=== PATIENT | male | born 1935 | race Caucasian/White ===

== ENCOUNTER 2016-05-23 12:33 | Outpatient (CLI) | payer MEDICARE, OTHER | END 2016-05-23 12:34 | disposition home or self-care (01) | DX: Z79.01 Long term (current) use of anticoagulants (principal) ==

== ENCOUNTER 2016-06-28 11:25 | Outpatient (CLI) | payer MEDICARE, OTHER | END 2016-06-28 11:26 | disposition home or self-care (01) | DX: Z79.01 Long term (current) use of anticoagulants (principal) ==

== ENCOUNTER 2016-07-07 | Outpatient (CLI) | payer MEDICARE, OTHER | END 2016-07-07 20:54 | disposition EMS.NT ==

== ENCOUNTER 2016-07-08 11:04 | Outpatient (CLI) | payer MEDICARE, OTHER | END 2016-07-08 11:05 | disposition home or self-care (01) | DX: N39.0 Urinary tract infection, site not specified (principal) ==

== ENCOUNTER 2016-07-19 12:30 | Outpatient (CLI) | payer MEDICARE, OTHER | END 2016-07-19 12:31 | disposition home or self-care (01) | DX: Z79.01 Long term (current) use of anticoagulants (principal) ==

== ENCOUNTER 2016-07-29 09:27 | Outpatient (CLI) | payer MEDICARE, OTHER | END 2016-07-29 09:28 | disposition home or self-care (01) | DX: I48.91 Unspecified atrial fibrillation (principal); E78.5 Hyperlipidemia, unspecified; I10 Essential (primary) hypertension; E11.319 Type 2 diabetes mellitus with unspecified diabetic retinopathy without macular edema; E03.9 Hypothyroidism, unspecified; D64.9 Anemia, unspecified ==

== ENCOUNTER 2016-08-21 12:47 | Outpatient (CLI) | payer MEDICARE, OTHER | END 2016-08-21 12:48 | disposition home or self-care (01) | DX: I48.2 Chronic atrial fibrillation (principal); I51.7 Cardiomegaly ==

== ENCOUNTER 2016-08-22 12:47 | Outpatient (CLI) | payer MEDICARE, OTHER | END 2016-08-22 12:48 | disposition home or self-care (01) | DX: Z79.01 Long term (current) use of anticoagulants (principal) ==

== ENCOUNTER 2016-11-27 09:47 | Outpatient (CLI) | payer MEDICARE, OTHER | END 2016-11-27 09:48 | disposition home or self-care (01) | LOC: LAB.F 09:47 | PROVIDERS: ATTEND Family Medicine | DX: Z79.01 Long term (current) use of anticoagulants (principal) | CPT/HCPCS: 85610 ==

== ENCOUNTER 2017-03-24 09:35 | Outpatient (CLI) | payer MEDICARE, OTHER | END 2017-03-24 09:36 | disposition home or self-care (01) | LOC: LAB.F 09:35 | PROVIDERS: ATTEND Family Medicine | DX: Z79.01 Long term (current) use of anticoagulants (principal) | CPT/HCPCS: 85610 ==

== ENCOUNTER 2017-04-29 13:57 | Outpatient (CLI) | payer MEDICARE, OTHER | END 2017-04-29 13:58 | disposition home or self-care (01) | LOC: LAB.F 13:57 | PROVIDERS: ATTEND Family Medicine | DX: Z79.01 Long term (current) use of anticoagulants (principal) | CPT/HCPCS: 85610 ==

== ENCOUNTER 2017-05-02 13:25 | Outpatient (CLI) | payer MEDICARE, OTHER | END 2017-05-02 13:26 | disposition home or self-care (01) | LOC: LAB.F 13:25 | PROVIDERS: ATTEND Family Medicine | DX: Z79.01 Long term (current) use of anticoagulants (principal) | CPT/HCPCS: 85610 ==

== ENCOUNTER 2017-05-16 11:13 | Outpatient (CLI) | payer MEDICARE, OTHER ==
[2017-05-16 18:04] LABS: ALBUMIN 3.4 g/dL (3.2-5.5); ALBUMIN/GLOBULIN RATIO 0.7 (1.0-2.2); ALKALINE PHOSPHATASE 67 IU/L (42-121); ALT ALANINE AMINOTRANSFERASE 16 IU/L (10-60); AST ASPARTATE AMINOTRANSFERASE 29 IU/L (10-42); BILIRUBIN,TOTAL 1.6 mg/dL (0.2-1.0); BUN - BLOOD UREA NITROGEN 19 mg/dL (6-20); CALCIUM 8.7 mg/dL (8.5-10.3); CARBON DIOXIDE - CO2 22 mmol/L (21-32); CHLORIDE 100 mmol/L (101-111); CHOL/HDL RATIO 3.9 (<5.0); CHOLESTEROL 116 mg/dL; CREATININE 1.5 mg/dL (0.6-1.2); GFR - MDRD 45 (>89); GLUCOSE 177 mg/dL (70-100); HDL CHOLESTEROL 30 mg/dL; LDL CHOLESTEROL,CALCULATED 68 mg/dL; LDL/HDL RATIO 2.3 (<3.6); SODIUM 133 mmol/L (135-145); TOTAL PROTEIN 8.1 g/dL (6.7-8.2); VLDL CHOLESTEROL 18 mg/dL
[2017-05-16 18:35] LABS: HB2 TOTAL 12.4 g/dL; HEMOGLOBIN A1C 0.65 g/dL; HEMOGLOBIN A1C % 6.9 % (4.6-6.2)
== END 2017-05-16 11:14 | disposition home or self-care (01) ==
LOC: LAB.F 11:13
PROVIDERS: ATTEND Family Medicine
DX: Z79.01 Long term (current) use of anticoagulants (principal); I48.91 Unspecified atrial fibrillation; E11.319 Type 2 diabetes mellitus with unspecified diabetic retinopathy without macular edema; E03.9 Hypothyroidism, unspecified; I25.810 Atherosclerosis of coronary artery bypass graft(s) without angina pectoris; I12.9 Hypertensive chronic kidney disease with stage 1 through stage 4 chronic kidney disease, or unspecified chronic kidney disease; N18.9 Chronic kidney disease, unspecified; E78.5 Hyperlipidemia, unspecified
CPT/HCPCS: 36415; 80053; 80061; 83036; 84443; 85610

== ENCOUNTER 2017-05-22 10:45 | Outpatient (CLI) | payer MEDICARE, OTHER | END 2017-05-22 10:46 | disposition home or self-care (01) | LOC: LAB.F 10:45 | PROVIDERS: ATTEND Family Medicine | DX: Z79.01 Long term (current) use of anticoagulants (principal) | CPT/HCPCS: 85610 ==

== ENCOUNTER 2017-05-27 17:46 | Outpatient (CLI) | payer MEDICARE, OTHER | END 2017-05-27 17:47 | disposition critical access hospital (66) | LOC: EMS 17:46 | PROVIDERS: ATTEND Surgery | DX: R53.83 Other fatigue (principal); R50.9 Fever, unspecified | CPT/HCPCS: A0425; A0427 ==

== ENCOUNTER 2017-05-27 18:16 | Inpatient (IN) | payer MEDICARE, OTHER ==
[2017-05-27] MEDS ORDERED: SODIUM CHLORIDE 0.9% 1,000 ML IV ONE (18:51)
[2017-05-27] MEDS ORDERED: ACETAMINOPHEN 325 MG TABLET PO STA (18:51)
--- NOTE | 2017-05-27 18:52 | ED Physician Documentation ---
History of Present Illness - Stated complaint Stated Complaint: WEAKNESS, FEVER - Chief complaint Chief Complaint: General - History obtained from History obtained from: Patient, Family - History of Present Illness Timing: Other (82-year-old gentleman with history of atrial fibrillation and pacemaker on warfarin presents with 1 day of fever and chills with runny nose and mild body aches but no associated cough. He does have a gas and neurogenic bladder or prostate issues and he self caths but has not noticed any visual or smell changes in his urine. No sick contacts or recent travel.) Review of Systems Ten Systems: 10 systems reviewed and negative Constitutional: reports: Fever, Chills, Myalgias Nose: reports: Rhinorrhea / runny nose. denies: Congestion Throat: denies: Sore throat Respiratory: denies: Dyspnea, Cough GI: denies: Abdominal Pain PD PAST MEDICAL HISTORY - Past Medical History Past Medical History: Yes Cardiovascular: Hypertension, Coronary artery disease, Peripheral Vascular Disease, Atrial fibrillation Respiratory: Emphysema, Sleep apnea, CPAP use Neuro: Peripheral neuropathy Endocrine/Autoimmune: Type 2 diabetes, HyPOthyroidism : Retention, Chronic bladder infection HEENT: Chronic vision loss Other Past Medical History: Self caths at home - Past Surgical History Past Surgical History: Yes General: Hiatal hernia repair Cardiovascular: CABG, Pacemaker, Other - Present Medications Home Medications: Ambulatory Orders Medication Instructions Recorded Confirmed Aspirin [Maura Chewable Aspirin] 81 mg PO DAILY 03/16/15 05/27/17 Atorvastatin Calcium [Lipitor] 40 mg PO DAILY 03/16/15 05/27/17 Carvedilol 12.5 mg PO DAILY 03/16/15 05/27/17 Cholecalciferol (Vitamin D3) 2,000 unit PO DAILY 03/16/15 05/27/17 [Vitamin D3] Glyburide 5 mg PO DAILY 03/16/15 05/27/17 HYDROcod/ACETAM 5/325 [[place] 5/325] 1 tab PO PRN PRN 03/16/15 05/27/17 Levothyroxine [Synthroid] 50 mg PO DAILY 03/16/15 05/27/17 Lisinopril 2.5 mg PO DAILY 03/16/15 05/27/17 Solifenacin Succinate [Vesicare] 10 mg PO DAILY 03/16/15 05/27/17 Ubidecarenone [Co Q-10] 100 mg PO DAILY 03/16/15 05/27/17 Warfarin [Coumadin] 5 mg PO DAILY 03/16/15 05/27/17 Warfarin [Coumadin] 1.5 tab PO DAILY 05/27/17 05/27/17 - Allergies Allergies/Adverse Reactions: Allergies Allergy/AdvReac Type Severity Reaction Status Date / Time niacin Allergy Unknown Verified 05/27/17 18:27 - Social History Does the pt smoke?: No Smoking Status: Former smoker Does the pt drink ETOH?: Yes Does the pt have substance abuse?: No - Immunizations Immunizations are current?: Yes - POLST Patient has POLST: Yes PD ED PE NORMAL - Vitals Vital signs reviewed: Yes - General General: Alert and oriented X 3, No acute distress - HEENT HEENT: PERRL, EOMI, Ears normal, Moist mucous membranes, Pharynx benign - Neck Neck: Supple, no meningeal sign, No bony TTP - Cardiac Cardiac: RRR, No murmur - Respiratory Respiratory: No respiratory distress, Clear bilaterally - Abdomen Abdomen: Non tender - Derm Derm: No rash - Neuro Neuro: Alert and oriented X 3, 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 Eye Opening: Spontaneous Motor: Obeys Commands Verbal: Oriented GCS Score: 15 - Psych Psych: Normal mood, Normal affect Results - Vitals Vitals: Vital Signs - 24 hr 05/27/17 05/27/17 05/27/17 18:21 19:22 19:51 Temperature 38.1 C H Heart Rate 70 74 70 Respiratory 16 18 18 Rate Blood Pressure 107/55 L 116/74 118/60 O2 Saturation 92 94 94 Oxygen O2 Source Room air - EKG (time done) 79286 Rate: Rate (enter#) (70) Rhythm: Paced (vent) Computer interpretation: Agree with computer - Labs Labs: Laboratory Tests 05/27/17 05/27/17 05/27/17 19:11 19:11 19:11 WBC 15.3 H RBC 2.97 L Hgb 11.5 L Hct 34.9 L MCV 117.7 H MCH 38.7 H MCHC 32.9 RDW 15.9 H Plt Count 112 L MPV 8.2 Neut # 13.6 H Lymph # 0.6 L [place] # 1.0 Eos # 0.0 Baso # 0.1 Absolute Nucleated RBC 0.01 Nucleated RBC % 0.1 Manual Slide Review Indicated Platelet Estimate DECREASED (<130,000) Platelet Morphology NORMAL APPEARANCE RBC Morph Micro Appear 1+ MICROCYTOSIS PT 29.0 H INR 2.7 H Sodium 134 L Potassium 3.8 Chloride 105 Carbon Dioxide 20 L Anion Gap 9.0 BUN 21 H Creatinine 1.3 H Estimated GFR (MDRD) 53 L Glucose 188 H Lactic Acid Calcium 8.5 Total Bilirubin 2.9 H AST 113 H ALT 51 Alkaline Phosphatase 100 Total Protein 7.4 Albumin 3.3 Globulin 4.1 Albumin/Globulin Ratio 0.8 L Lipase 16 L Urine Color Urine Clarity Urine pH Ur Specific [place] Urine Protein Urine Glucose (UA) Urine Ketones Urine Occult Blood Urine Nitrite Urine Bilirubin Urine Urobilinogen Ur Leukocyte Esterase Urine RBC Urine WBC Ur Squamous Epith Cells Urine Bacteria Ur Microscopic Review Urine Culture Comments Influenza A (Rapid) Influenza B (Rapid) Influenza Types A,B Ag 05/27/17 05/27/17 05/27/17 19:11 19:15 19:45 WBC RBC Hgb Hct MCV MCH MCHC RDW Plt Count MPV Neut # Lymph # [place] # Eos # Baso # Absolute Nucleated RBC Nucleated RBC % Manual Slide Review Platelet Estimate Platelet Morphology RBC Morph Micro Appear PT INR Sodium Potassium Chloride Carbon Dioxide Anion Gap BUN Creatinine Estimated GFR (MDRD) Glucose Lactic Acid 1.4 Calcium Total Bilirubin AST ALT Alkaline Phosphatase Total Protein Albumin Globulin Albumin/Globulin Ratio Lipase Urine Color YELLOW Urine Clarity CLEAR Urine pH 5.5 Ur Specific [place] 1.025 Urine Protein NEGATIVE Urine Glucose (UA) NEGATIVE Urine Ketones NEGATIVE Urine Occult Blood MODERATE H Urine Nitrite NEGATIVE Urine Bilirubin NEGATIVE Urine Urobilinogen 1 (NORMAL) Ur Leukocyte Esterase SMALL H Urine RBC 6-10 H Urine WBC 4-5 Ur Squamous Epith Cells RARE Squamous Urine Bacteria Moderate H Ur Microscopic Review INDICATED Urine Culture Comments INDICATED Influenza A (Rapid) Negative Influenza B (Rapid) Negative Influenza Types A,B Ag - - Rads (name of study) 2v chest Radiology: EMP read contemporaneously (NAD) PD MEDICAL DECISION MAKING - ED course ED course: 82-year-old gentleman with atrial fibrillation on warfarin presents with fever in this flu season. However his flu swab is negative. Note made that he self caths and has had UTIs before and this is present now. Prior culture reviewed, noting david quinolone resistance and he was administered Rocephin after blood cultures. He is very weak and cannot really stand up without assistance and his daughter and her are in poor health and he will need to be admitted. - Consults Consults: Consulted (name) (Allen Boothe, Hospitalist, will see and admit the patient , we spoke at 8:25 PM.) Departure - Departure Disposition: 66 [facility] DC/Xfer Clinical Impression: Weakness, Renal insufficiency UTI (urinary tract infection) Qualifiers: Urinary tract infection type: catheter-associated UTI Indwelling urinary catheter type: unspecified Encounter type: initial encounter Qualified Code(s): T83.511A - Infection and inflammatory reaction due to indwelling urethral catheter, initial encounter Sepsis Qualifiers: Sepsis type: sepsis due to unspecified organism Qualified Code(s): A41.9 - Sepsis, unspecified organism Condition: Serious
[2017-05-27 19:21] LABS: BASOPHILS # (AUTO) 0.1 10^3/uL (0.0-0.1); BASOPHILS % (AUTO) 0.4 %; EOSINOPHILS % (AUTO) 0.2 %; HGB - HEMOGLOBIN 11.5 g/dL (14.0-18.0); LYMPHOCYTES # (AUTO) 0.6 10^3/uL (1.5-3.5); LYMPHOCYTES % (AUTO) 3.9 %; MEAN CORPUSCULAR HEMOGLOBIN 38.7 pg (27.0-31.0); MEAN CORPUSCULAR HGB CONC 32.9 g/dL (32.0-36.0); MEAN CORPUSCULAR VOLUME 117.7 fL (80.0-94.0); MEAN PLATELET VOLUME 8.2 fL (7.4-11.4); MONOCYTES % (AUTO) 6.5 %; NEUTROPHILS # (AUTO) 13.6 10^3/uL (1.5-6.6); PLT - PLATELET COUNT 112 10^3/uL (130-450); RED BLOOD COUNT 2.97 10^6/uL (4.70-6.10); RED CELL DISTRIBUTION WIDTH 15.9 % (12.0-15.0); WHITE BLOOD COUNT 15.3 x10^3/uL (4.8-10.8)
[2017-05-27 19:25] LABS: INR 2.7 (0.8-1.2)
[2017-05-27 19:33] LABS: ALBUMIN 3.3 g/dL (3.2-5.5); ALBUMIN/GLOBULIN RATIO 0.8 (1.0-2.2); BILIRUBIN,TOTAL 2.9 mg/dL (0.2-1.0); CALCIUM 8.5 mg/dL (8.5-10.3); CREATININE 1.3 mg/dL (0.6-1.2); TOTAL PROTEIN 7.4 g/dL (6.7-8.2)
[2017-05-27 19:50] LABS: PLATELET ESTIMATE, MANUAL DECREASED (<130,000) (NORMAL); PLATELET MORPHOLOGY NORMAL APPEARANCE (NORMAL)
[2017-05-27 19:58] LABS: BILIRUBIN,URINE NEGATIVE (NEGATIVE); GLUCOSE, URINE (UA) NEGATIVE (NEGATIVE); KETONES,URINE (UA) NEGATIVE (NEGATIVE); LEUKOCYTE ESTERASE, URINE SMALL (NEGATIVE); NITRITE,URINE NEGATIVE (NEGATIVE); OCCULT BLOOD,URINE MODERATE (NEGATIVE); PH,URINE 5.5 PH (5.0-7.5); PROTEIN,URINE NEGATIVE (NEGATIVE); UROBILINOGEN,URINE 1 (NORMAL) E.U./dL (NORMAL)
[2017-05-27 20:04] LABS: CLARITY,URINE CLEAR (CLEAR); SQUAMOUS EPITHELIAL CELL,UR RARE Squamous (<= Few)
[2017-05-27 20:05] LABS: BACTERIA,URINE Moderate /HPF (None Seen)
[2017-05-27] MEDS ORDERED: cefTRIAXone 1 GM in SODIUM CHLORIDE 0.9% MINIBAG 100 ML IV STA (20:10)
--- NOTE | 2017-05-27 20:20 | XRAY Preliminary Report ---
Exam: XR CHEST 2 VIEW X-RAY IMPRESSION: 1. No acute pulmonary process. 2. Mild cardiac enlargement. [facility] SITE ID: [id number]
--- NOTE | 2017-05-27 20:23 | XRAY Report ---
EXAM: CHEST RADIOGRAPHY EXAM DATE: 05/27/2017 08:08 PM. CLINICAL HISTORY: Fever. COMPARISON: 03/16/2015. TECHNIQUE: 2 views. FINDINGS: Lungs/Pleura: No focal opacities evident. No pleural effusion. No pneumothorax. Normal volumes. Mediastinum: Cardiac enlargement. Dual lead cardiac device is present. Atheromatous plaques are noted in the thoracic aorta. Cardiac enlargement noted. Previous sternotomy. Previous aortic valve replace ment. Other: None. IMPRESSION: 1. No acute pulmonary process. 2. Mild cardiac enlargement. [facility] Referring Provider Line: [phone] SITE ID: [id number]
[2017-05-27] MEDS ORDERED: ACETAMINOPHEN 325 MG TABLET PO PRN (20:42)
[2017-05-27] MEDS ORDERED: ONDANSETRON 4 MG/2 ML VIAL IVP PRN (20:42)
[2017-05-27] MEDS ORDERED: SODIUM CHLORIDE FLUSH 0.9% 10 ML SYRINGE IVP PRN (20:42)
[2017-05-27] MEDS ORDERED: HYDROcod/ACETAM 5/325 MG TABLET PO PRN (20:49)
[2017-05-27 21:14] LABS: HB2 TOTAL 12.3 g/dL; HEMOGLOBIN A1C 0.66 g/dL; HEMOGLOBIN A1C % 7.1 % (4.6-6.2)
[2017-05-27] MEDS: SACCHAROMYCES BOULARDII 250 MG CAPSULE PO SCH (22:16)
[2017-05-27] MEDS: INSULIN ASPART 300 UNIT/3 ML PEN SUBQ SCH (22:16)
[2017-05-27] MEDS: NEOMYCIN/BACITRA/POLYMYX OINT PACKET TOP SCH (22:17)
[2017-05-27] MEDS: SODIUM CHLORIDE FLUSH 0.9% 10 ML SYRINGE IVP SCH (22:18)
[2017-05-28] MEDS: SODIUM CHLORIDE FLUSH 0.9% 10 ML SYRINGE IVP SCH ×4 (05:42→20:49)
[2017-05-28 06:51] LABS: BASOPHILS % (AUTO) 0.2 %; EOSINOPHILS % (AUTO) 0.1 %; HGB - HEMOGLOBIN 11.2 g/dL (14.0-18.0); LYMPHOCYTES # (AUTO) 0.9 10^3/uL (1.5-3.5); LYMPHOCYTES % (AUTO) 6.3 %; MEAN CORPUSCULAR HEMOGLOBIN 39.4 pg (27.0-31.0); MEAN CORPUSCULAR HGB CONC 33.3 g/dL (32.0-36.0); MEAN CORPUSCULAR VOLUME 118.4 fL (80.0-94.0); MEAN PLATELET VOLUME 8.6 fL (7.4-11.4); MONOCYTES # (AUTO) 1.1 10^3/uL (0.0-1.0); MONOCYTES % (AUTO) 7.4 %; NEUTROPHILS # (AUTO) 13.1 10^3/uL (1.5-6.6); PLT - PLATELET COUNT 97 10^3/uL (130-450); RED BLOOD COUNT 2.84 10^6/uL (4.70-6.10); RED CELL DISTRIBUTION WIDTH 15.9 % (12.0-15.0); WHITE BLOOD COUNT 15.2 x10^3/uL (4.8-10.8)
[2017-05-28 06:54] LABS: INR 2.2 (0.8-1.2); PT - PROTHROMBIN TIME 24.6 secs (9.9-12.6)
[2017-05-28 06:55] LABS: CALCIUM 8.1 mg/dL (8.5-10.3); CREATININE 1.3 mg/dL (0.6-1.2)
[2017-05-28] MEDS ORDERED: LEVOTHYROXINE 25 MCG TABLET PO SCH (07:30)
[2017-05-28] MEDS: SACCHAROMYCES BOULARDII 250 MG CAPSULE PO SCH ×2 (08:59→17:10)
[2017-05-28] MEDS: ASPIRIN CHEW 81 MG TABLET PO SCH (08:59)
[2017-05-28] MEDS: CHOLECALCIFEROL 1,000 UNIT TABLET PO SCH (08:59)
[2017-05-28] MEDS: ATORVASTATIN 40 MG TABLET PO SCH (08:59)
[2017-05-28] MEDS: TOLTERODINE LA 2 MG CAPSULE PO SCH (08:59)
[2017-05-28] MEDS ORDERED: glyBURIDE 2.5 MG TABLET PO SCH (09:00)
[2017-05-28] MEDS ORDERED: CARVEDILOL 12.5 MG TABLET PO SCH ×3 (09:00→14:17)
[2017-05-28] MEDS ORDERED: SOLIFENACIN SUCCINATE 10 MG PO SCH (09:00)
[2017-05-28] MEDS: INSULIN ASPART 300 UNIT/3 ML PEN SUBQ SCH ×4 (09:01→20:26)
[2017-05-28] MEDS: NEOMYCIN/BACITRA/POLYMYX OINT PACKET TOP SCH ×2 (09:01→20:49)
[2017-05-28] MEDS: POLYETHYLENE GLYCOL 3350 17 GM PACKET PO SCH (09:05)
[2017-05-28] MEDS ORDERED: WARFARIN 2.5 MG TABLET PO SCH (14:00)
--- NOTE | 2017-05-28 15:15 | HISTORY & PHYSICAL EXAMINATION ---
DATE OF SERVICE: 05/27/2017 Physician: Bhavna Boothe MD CHIEF COMPLAINT: Fever and chills. HISTORY OF PRESENT ILLNESS: Patient is a pleasant, 82-year-old, white male with complex medical background, who presented to the [facility] ER complaining of a 1- day history of fever, chills, and generalized weakness. The patient also reported that the day prior he was nauseous and vomited one time. He vomited clear gastric content, there was no blood. Due to the progressive weakness, he was unable to get out of bed or ambulate. Usually he has impaired mobility and uses a scooter; however, during the past day or so ,he had difficulty even doing that. Notably, the patient has extensive cardiac history; however, he reported that most recently his cardiac condition had been stable. He takes Coumadin for atrial fibrillation. He reported no chest pain, no shortness of breath, and no recent angina-like symptoms. Notably he has history of coronary artery bypass graft and history of aortic valve replacement with a bovine valve. This patient's background is most significant for a history of prostate hypertrophy, for which he self catheterizes. In the past, he had urinary tract infections, in particular Klebsiella and E coli UTIs, which were resistant to multiple antibiotics, including penicillin and fluoroquinolone. Patient reports that the last time he took antibiotics for a urinary infection was about a year ago; at that time, he was admitted to the [facility] system. Upon presentation to the ER, the patient was found febrile with temperature of 38.1 Celsius, his heart rate was in the 70s, EKG showed paced rhythm, blood pressure was borderline low, 100/60. White blood cell count was elevated around 15,000. INR was therapeutic at 2.7; notably, the patient takes Coumadin. Creatinine was 1.3. Patient does have underlying chronic renal insufficiency. ER workup included influenza swab which was negative, chest x-rays which did not show infiltrate; and urinalysis which showed moderate occult blood, small leukocyte esterase, some red blood cells and moderate bacteria, indicating likelihood of urinary tract infection. PAST MEDICAL HISTORY 1. Hypothyroidism. 2. Hypertension. 3. Type 2 diabetes. 4. Complications of diabetes including peripheral neuropathy, retinopathy and nephropathy. 5. Chronic kidney disease. Creatinine baseline 1.1 and 1.3/stage 3 kidney disease. 6. Dyslipidemia. 7. Atrial fibrillation/status post pacemaker implant/therapeutically anticoagulated on Coumadin. 8. History of aortic valve replacement in 2004 with a bovine valve/ bioprosthetic. 9. Coronary artery disease, status post coronary artery bypass graft in 2004. 10. Prostatic hypertrophy, self catheterizes. 11. History of urinary tract infections with Klebsiella and E coli, resistant to multiple antibiotics. ALLERGIES: NIACIN. OUTPATIENT MEDICATIONS Reviewed per electronic medical record included: 1. Aspirin. 2. Vitamin D. 3. Lipitor. 4. Glyburide. 5. Coreg. 6. Coenzyme Q. 7. VESIcare. 8. Lisinopril. 9. Levothyroxine. 10. [place]. 11. Coumadin. SOCIAL HISTORY: The patient lives with his daughter and with his son-in-law. He uses an electric scooter for mobility. He reported no recent falls. He does not smoke and does not drink alcohol. FAMILY HISTORY: Positive for diabetes in his grandmother and type 1 diabetes in his brother. CODE STATUS: DO NOT RESUSCITATE. PRIMARY CARE PHYSICIAN: Jeevan Mccormack MD. REVIEW OF SYSTEMS: Please see pertinent positives and pertinent negatives listed above at History of Present Illness; the patient did not report additional complaints on the 12-point review. PHYSICAL EXAMINATION VITAL SIGNS: Please see listed above in History of Present Illness. GENERAL: The patient is a well-developed, elderly male who was not in distress. SKIN: On the right ear, there was a healing surgical scar with some surrounding swelling, inflammatory changes, and a small amount of discharge. There was no rash and no jaundice. Oral mucosa dry. No thrush, no ulcers. CARDIOVASCULAR: S1, S2. Regular. No pathologic murmur. RESPIRATORY: Good air entry throughout without wheezes or crackles, no increased work of breathing. ABDOMEN: Distended, benign, nontender. Small umbilical hernia. Bowel tones present. LYMPHATIC: No significant lymphedema. MUSCULOSKELETAL: Atraumatic. NEUROLOGIC: Patient was alert, oriented, neurologically nonfocal; he answered all my questions appropriately. PSYCHIATRIC: Cooperative, appropriate mood and affect. ER workup reviewed per electronic medical record; pertinent studies are listed at History of Present Illness. ASSESSMENT AND PLAN: The patient is a pleasant, 82-year-old male whose background is significant for history of complicated urinary tract infections; patient self catheterizes due to a prostate problem, and he had urinary infections in the past resistant to multiple antibiotics. Today he is getting admitted with fever, elevated white blood cell count, borderline low blood pressure, and he rules in for the diagnosis of sepsis secondary to urinary tract infection. ACTIVE ISSUES/DIAGNOSES/PLAN 1. Complicated urinary tract infection/sepsis secondary to urinary tract infection. We will continue ceftriaxone based on prior culture and sensitivity reports. We will encourage oral intake; we will ask the patient to drink about 2 liters fluid in the next 12 hours. The patient is elderly, 82 years old, and we will not give IV fluids, as we do not want to overload his circulation as long as he is hemodynamically stable. Regarding self catheterization, the patient requested that we let him continue his own routine. I gave a nursing order that we should check residuals, and if above 400, then we will remind the patient to do self catheterization. 2. Bowel prophylaxis/Florastor. 3. Chronic kidney disease, creatinine is slightly elevated; treating urinary tract infection and encouraging fluid intake will likely improve the situation. Given borderline low blood pressure, I will hold lisinopril. 4. Therapeutic anticoagulation on Coumadin. I will continue small dose Coumadin, the INR being therapeutic. INR goal for this patient would be between 2 and 3. We are anticoagulating for atrial fibrillation, but not for mechanical valve, as the patient has a bovine aortic valve. In any case, given that he is on antibiotics , INR could change, and I asked Pharmacy to adjust Coumadin dose as needed. 5. Regarding atrial fibrillation, we will continue rate control with Coreg. 6. Type 2 diabetes, blood glucose below 200 today. We will allow a diabetic diet, monitor blood glucose on sliding scale, and continue glyburide as long as the patient takes at least 50% of his meals. 7. Regarding longer term issues, as the patient has frequent urinary infections, he likely would benefit from antibiotic suppression and taking nitrofurantoin. 8. Medication reconciliation. I reviewed outpatient medication list. Notably the patient is both on aspirin and Coumadin. For now I continued it; however, it should be considered that with therapeutic Coumadin anticoagulation, patient might not need aspirin. Regarding the outpatient medications, we will continue mostly unchanged, except I will hold lisinopril given borderline low blood pressure in the setting of acute infection. 9. Code status is DO NOT RESUSCITATE. 10. Regarding deep venous thrombosis prophylaxis, it is not needed as the patient is therapeutically anticoagulated. 11. Additional issue is that the patient had recent skin biopsy and small surgical procedure on his right ear. There is a healing scar. We will order wound care for this and some topical antibiotic ointment. 12. Disposition. The patient is getting admitted as an inpatient. The reasonable expectation is that this patient will be discharged home or transferred to another facility within 96 hours. This assessment is based on my best judgment, assessing admission workup and anticipating response to current therapies,however also considering the patient's complicated background. Time spent with the care of this patient is 60 minutes. TD: 05/28/2017 04:16 ERICA
--- NOTE | 2017-05-28 16:27 | PROVIDER PROGRESS NOTE ---
Assessment/Plan - Problem List (1) UTI (urinary tract infection) Qualifiers: Urinary tract infection type: catheter-associated UTI Indwelling urinary catheter type: unspecified Encounter type: subsequent encounter Qualified Code(s): T83.511D - Infection and inflammatory reaction due to indwelling urethral catheter, subsequent encounter; N39.0 - Urinary tract infection, site not specified; N39.0 - Urinary tract infection, site not specified Assessment/Plan: Patient has a history of urinary retention and self caths at home He has had recurrent UTIs in the past He presented to the ER with generalized weakness, was febrile and BP was borderline low The patient was found to have a leukocytosis with WBC of 15K and UA was positive for a UTI Given IVFs and placed on ceftriaxone given previous susceptibilities Patients BP improved this am Patient feels better WBC still elevated No further fevers Urine cx growing ecoli but susceptibilities are still pending Continue ceftriaxone day 2 (2) Diabetes Qualifiers: Diabetes mellitus type: type 2 Diabetes mellitus complication status: with kidney complications Diabetes mellitus complication detail: with chronic kidney disease Diabetes mellitus intermediate insulin use: without intermediate use Chronic kidney disease stage: stage 2 (mild) Qualified Code(s): E11.22 - Type 2 diabetes mellitus with diabetic chronic kidney disease; N18.2 - Chronic kidney disease, stage 2 (mild); N18.2 - Chronic kidney disease, stage 2 (mild) Assessment/Plan: Patient is on metformin and glyburide at home Will hold PO meds Place on SS insulin while hospitalized DM diet Monitor BG ACHS (3) Atrial fibrillation Qualifiers: Atrial fibrillation type: chronic Qualified Code(s): I48.2 - Chronic atrial fibrillation Assessment/Plan: Patient is rate controlled with coreg On coumadin for anticoagulation and INR is 2.2 Stable Continue home meds (4) Hyponatremia Assessment/Plan: Patient appears to have hypovolemic hyponatremia likely secondary to infection and dehydration Given IVFs and will continue IVF Monitor Na (5) Hypothyroidism Qualifiers: Hypothyroidism type: unspecified Qualified Code(s): E03.9 - Hypothyroidism , unspecified Assessment/Plan: Stable Continue synthroid (6) Urinary retention Assessment/Plan: RN will help straight cath while patient is hospitalized - Current Meds Current Meds: Current Medications Generic Name Dose Route Start Last Admin Trade Name Freq PRN Reason Stop Dose Admin Aspirin 81 mg 05/28/17 09:00 05/28/17 08:59 [place] Aspirin PO 81 mg DAILY PATRICIA Administration Atorvastatin Calcium 40 mg 05/28/17 09:00 05/28/17 08:59 Lipitor PO 40 mg DAILY PATRICIA Administration Cholecalciferol 2,000 unit 05/28/17 09:00 05/28/17 08:59 Vitamin D3 PO 2,000 unit DAILY PATRICIA Administration Insulin Aspart 1 - 5 unit 05/27/17 21:00 05/28/17 11:41 Novolog SUBQ Not Given 0800,1200,1700,2100 [facility] Protocol Neomycin/Polymyxin/Bacitracin 1 packet 05/27/17 22:00 05/28/17 09:01 Neosporin Oint Pkt TOP 1 packet BID PATRICIA Administration Polyethylene Glycol 17 gm 05/28/17 09:00 05/28/17 09:05 Miralax PO Not Given DAILY PATRICIA Saccharomyces Boulardii 250 mg 05/27/17 21:00 05/28/17 08:59 Florastor PO 250 mg BIDWM PATRICIA Administration Sodium Chloride 10 ml 05/27/17 22:00 05/28/17 14:54 Normal Saline Flush 0.9% IVP 10 ml Q8HR PATRICIA Administration Tolterodine Tartrate 4 mg 05/28/17 09:00 05/28/17 08:59 Detrol [place] PO 4 mg DAILY PATRICIA Administration - Lab Result Lab results reviewed: Yes Fish Bone Diagrams: 05/28/17 06:10 05/28/17 06:10 - Diagnostic Imaging Results Diagnostic Imaging Results: Final report reviewed - Additional Planning My Orders: My Active Orders 05/28/17 16:00 Warfarin [Coumadin] 5 mg PO ALVAROETHSA@1400 05/29/17 07:00 Levothyroxine [Synthroid] 50 mcg PO QDAC 05/29/17 09:00 Carvedilol [Coreg] 6.25 mg PO DAILY Lisinopril [Zestril] 2.5 mg PO DAILY Plan Discussed with:: Patient Time Spent: 31-60 minutes Subjective - Subjective Patient Reports: Feeling Better, Resting Comfortably, Other (Still feels weak but improved since he came to the ER) Objective Vital Signs: Vital Signs - 24 hr 05/27/17 05/27/17 05/28/17 20:55 21:39 00:52 Temperature 37.3 C 37.1 C 37 C Heart Rate 70 Heart Rate [ 70 74 Brachial] Respiratory 16 16 20 Rate Blood Pressure 99/55 L Blood Pressure 96/46 L 120/57 L [Right Brachial artery] O2 Saturation 95 93 94 05/28/17 05/28/17 08:25 12:36 Temperature 36.7 C 37.4 C Heart Rate Heart Rate [ 69 70 Brachial] Respiratory 19 16 Rate Blood Pressure Blood Pressure 99/77 101/56 L [Right Brachial artery] O2 Saturation 95 96 Oxygen O2 Source Room air I&O (Last 24 Hrs): Intake and Output Totals x24h 05/26/17 05/27/17 05/28/17 23:59 23:59 23:59 Intake Total 370 580 Balance 370 580 General: Alert, Oriented x3, Cooperative, No acute distress HEENT: Atraumatic, PERRLA, EOMI, Other (Mucus membranes are dry) Neck: Supple, No JVD, No thyromegaly, +2 carotid pulse wo bruit, No LAD Lymphatic: no adenopathy Neuro: Alert, Non Focal, CN 2-12 Grossly Intact, Oriented Times 3 Cardiovascular: Normal S1, Normal S2, No murmurs, Other (Irregulary irregular) Respiratory: Chest non-tender, No respiratory distress, Breath sounds nml Abdomen: Normal bowel sounds, Soft, No tenderness, No hepatospenomegaly Extremities: No clubbing, No cyanosis, No edema, Normal pulses Skin: No rashes, No breakdown - Results Results: Laboratory Results WBC 15.2 x10^3/uL (4.8-10.8) H 05/28/17 06:10 RBC 2.84 10^6/uL (4.70-6.10) L 05/28/17 06:10 Hgb 11.2 g/dL (14.0-18.0) L 05/28/17 06:10 Hct 33.6 % (42.0-52.0) L 05/28/17 06:10 MCV 118.4 fL (80.0-94.0) H 05/28/17 06:10 MCH 39.4 pg (27.0-31.0) H 05/28/17 06:10 MCHC 33.3 g/dL (32.0-36.0) 05/28/17 06:10 RDW 15.9 % (12.0-15.0) H 05/28/17 06:10 Plt Count 97 10^3/uL (130-450) L 05/28/17 06:10 MPV 8.6 fL (7.4-11.4) 05/28/17 06:10 Neut # 13.1 10^3/uL (1.5-6.6) H 05/28/17 06:10 Lymph # 0.9 10^3/uL (1.5-3.5) L 05/28/17 06:10 [place] # 1.1 10^3/uL (0.0-1.0) H 05/28/17 06:10 Eos # 0.0 10^3/uL (0.0-0.7) 05/28/17 06:10 Baso # 0.0 10^3/uL (0.0-0.1) 05/28/17 06:10 Absolute Nucleated RBC 0.00 x10^3/uL 05/28/17 06:10 Nucleated RBC % 0.0 /100WBC 05/28/17 06:10 Manual Slide Review Indicated 05/28/17 06:10 Platelet Estimate DECREASED (<130,000) (NORMAL) 05/27/17 19:11 Platelet Morphology NORMAL APPEARANCE (NORMAL) 05/27/17 19:11 RBC Morph Micro Appear 2+ ANISOCYTOSIS (NORMAL) 1+ HYPOCHROMASIA (NORMAL) 1 + MICROCYTOSIS (NORMAL) 05/27/17 19:11 RBC Morph Micro Appear 2+ ANISOCYTOSIS (NORMAL) 1+ HYPOCHROMASIA (NORMAL) 1 + MICROCYTOSIS (NORMAL) 05/27/17 19:11 RBC Morph Micro Appear 1+ ANISOCYTOSIS (NORMAL) 3+ MACROCYTOSIS (NORMAL) 06:10 RBC Morph Micro Appear 1+ ANISOCYTOSIS (NORMAL) 3+ MACROCYTOSIS (NORMAL) 06:10 PT 24.6 secs (9.9-12.6) H 05/28/17 06:10 INR 2.2 (0.8-1.2) H 05/28/17 06:10 Sodium 133 mmol/L (135-145) L 05/28/17 06:10 Potassium 4.2 mmol/L (3.5-5.0) 05/28/17 06:10 Chloride 104 mmol/L (101-111) 05/28/17 06:10 Carbon Dioxide 22 mmol/L (21-32) 05/28/17 06:10 Anion Gap 7.0 (6-13) 05/28/17 06:10 BUN 21 mg/dL (6-20) H 05/28/17 06:10 Creatinine 1.3 mg/dL (0.6-1.2) H 05/28/17 06:10 Estimated GFR (MDRD) 53 (>89) L 05/28/17 06:10 Glucose 158 mg/dL (70-100) H 05/28/17 06:10 POC Whole Bld Glucose 117 mg/dL (70 - 100) H 05/28/17 11:30 Glycated Hemoglobin 7.1 % (4.6-6.2) H 05/27/17 19:11 Estim Average Glucose 157 (70-100) H 05/27/17 19:11 Lactic Acid 1.4 mmol/L (0.5-2.2) 05/27/17 19:11 Calcium 8.1 mg/dL (8.5-10.3) L 05/28/17 06:10 Total Bilirubin 2.9 mg/dL (0.2-1.0) H 05/27/17 19:11 AST 113 IU/L (10-42) H 05/27/17 19:11 ALT 51 IU/L (10-60) 05/27/17 19:11 Alkaline Phosphatase 100 IU/L (42-121) 05/27/17 19:11 Total Protein 7.4 g/dL (6.7-8.2) 05/27/17 19:11 Albumin 3.3 g/dL (3.2-5.5) 05/27/17 19:11 Globulin 4.1 g/dL (2.1-4.2) 05/27/17 19:11 Albumin/Globulin Ratio 0.8 (1.0-2.2) L 05/27/17 19:11 Lipase 16 U/L (22-51) L 05/27/17 19:11 Urine Color YELLOW 05/27/17 19:45 Urine Clarity CLEAR (CLEAR) 05/27/17 19:45 Urine pH 5.5 PH (5.0-7.5) 05/27/17 19:45 Ur Specific [place] 1.025 (1.002-1.030) 05/27/17 19:45 Urine Protein NEGATIVE mg/dL (NEGATIVE) 05/27/17 19:45 Urine Glucose (UA) NEGATIVE mg/dL (NEGATIVE) 05/27/17 19:45 Urine Ketones NEGATIVE mg/dL (NEGATIVE) 05/27/17 19:45 Urine Occult Blood MODERATE (NEGATIVE) H 05/27/17 19:45 Urine Nitrite NEGATIVE (NEGATIVE) 05/27/17 19:45 Urine Bilirubin NEGATIVE (NEGATIVE) 05/27/17 19:45 Urine Urobilinogen 1 (NORMAL) E.U./dL (NORMAL) 05/27/17 19:45 Ur Leukocyte Esterase SMALL (NEGATIVE) H 05/27/17 19:45 Urine RBC 6-10 /HPF (0-5) H 05/27/17 19:45 Urine WBC 4-5 /HPF (0-3) 05/27/17 19:45 Ur Squamous Epith Cells RARE Squamous (<= Few) 05/27/17 19:45 Urine Bacteria Moderate /HPF (None Seen) H 05/27/17 19:45 Ur Microscopic Review INDICATED 05/27/17 19:45 Urine Culture Comments INDICATED 05/27/17 19:45 Influenza A (Rapid) Negative (Negative) 05/27/17 19:15 Influenza B (Rapid) Negative (Negative) 05/27/17 19:15 Influenza Types A,B Ag - 05/27/17 19:15
[2017-05-28] MEDS: WARFARIN 5 MG TABLET PO SCH (17:10)
[2017-05-28] MEDS ORDERED: cefTRIAXone 1 GM in SODIUM CHLORIDE 0.9% MINIBAG 100 ML IV SCH (20:00)
[2017-05-28] MEDS ORDERED: DEXTROSE 50% ABBOJECT 25 GM/50 ML SYRINGE IVP ONE (20:14)
[2017-05-28] MEDS ORDERED: DEXTROSE 50% ABBOJECT 25 GM/50 ML SYRINGE IVP SCH (20:49)
[2017-05-29] MEDS: SODIUM CHLORIDE FLUSH 0.9% 10 ML SYRINGE IVP SCH (04:21)
[2017-05-29] MEDS ORDERED: LEVOTHYROXINE 25 MCG TABLET PO SCH (07:00)
[2017-05-29] MEDS: INSULIN ASPART 300 UNIT/3 ML PEN SUBQ SCH ×2 (07:44→12:29)
[2017-05-29 08:16] LABS: HGB - HEMOGLOBIN 10.8 g/dL (14.0-18.0); MEAN CORPUSCULAR HGB CONC 34.6 g/dL (32.0-36.0); MEAN CORPUSCULAR VOLUME 115.8 fL (80.0-94.0); MEAN PLATELET VOLUME 8.4 fL (7.4-11.4); RED BLOOD COUNT 2.7 10^6/uL (4.70-6.10); RED CELL DISTRIBUTION WIDTH 15.9 % (12.0-15.0)
[2017-05-29 08:21] VITALS: BP 93/74
[2017-05-29 08:28] LABS: ALBUMIN 2.8 g/dL (3.2-5.5); ALBUMIN/GLOBULIN RATIO 0.7 (1.0-2.2); ALKALINE PHOSPHATASE 66 IU/L (42-121); ALT ALANINE AMINOTRANSFERASE 42 IU/L (10-60); AST ASPARTATE AMINOTRANSFERASE 57 IU/L (10-42); BILIRUBIN,TOTAL 1.5 mg/dL (0.2-1.0); BUN - BLOOD UREA NITROGEN 20 mg/dL (6-20); CALCIUM 8.6 mg/dL (8.5-10.3); CARBON DIOXIDE - CO2 24 mmol/L (21-32); CHLORIDE 100 mmol/L (101-111); CREATININE 1.1 mg/dL (0.6-1.2); GFR - MDRD 64 (>89); GLUCOSE 82 mg/dL (70-100); SODIUM 133 mmol/L (135-145); TOTAL PROTEIN 6.9 g/dL (6.7-8.2)
[2017-05-29] MEDS ORDERED: LISINOPRIL 5 MG TABLET PO SCH (09:00)
[2017-05-29] MEDS ORDERED: CARVEDILOL 3.125 MG TABLET PO SCH (09:00)
--- NOTE | 2017-05-29 09:00 | Discharge Plan ---
Discharge Plan Disposition: 01 Home, Self Care Condition: Fair Prescriptions: Sulfamethox/Trimeth 800/160 [Bactrim Ds 800/160] 1 tab PO BID #14 tablet Diet: Diabetic Activity Restrictions: Activity as Tolerated Shower Restrictions: No Driving Restrictions: No Assistance Devices: Walker Weight Bearing: Full Weight Additional Instructions or Follow Up instructions: You presented to our emergency department with weakness and were found to have a urinary tract infection. When you presented to the emergency department your blood pressure was borderline low and you appeared to be septic. With IV fluids and antibiotics you improved. Your urine culture grew E. coli which should be susceptible to an oral antibiotic. We have prescribed you Bactrim which she will take for 7 days to complete a course of antibiotics for urinary tract infection. While you were hospitalized you did have a drop in your blood sugar and I advised that you stop taking glyburide. You should continue using your metformin. Please make sure to drink plenty of fluid and follow-up with your primary care physician in the next week. No Smoking: If you smoke, Please STOP! Call for help. Follow-up with: Adriel Mccormack MD [Primary Care Provider] -
[2017-05-29] MEDS: TOLTERODINE LA 2 MG CAPSULE PO SCH (09:08)
[2017-05-29] MEDS: ASPIRIN CHEW 81 MG TABLET PO SCH (09:09)
[2017-05-29] MEDS: CHOLECALCIFEROL 1,000 UNIT TABLET PO SCH (09:09)
[2017-05-29] MEDS: ATORVASTATIN 40 MG TABLET PO SCH (09:09)
[2017-05-29] MEDS: SACCHAROMYCES BOULARDII 250 MG CAPSULE PO SCH (09:09)
--- NOTE | 2017-05-29 09:09 | DISCHARGE SUMMARY ---
Discharge Summary Admit Date: 05/27/17 Discharge Date: 05/29/17 Discharging Provider: Al Reyes MD Primary Care Provider: Jeevan Mccormack MD Code Status: Do Not Attempt Resuscitation Condition at Discharge: Fair Discharge Disposition: 01 Home, Self Care - DIAGNOSES Admission Diagnoses: 1. Complicated urinary tract infection 2. Sepsis secondary to UTI 3. Bowel prophylaxis 4. Chronic kidney disease 5. Therapeutic and a coagulation on Coumadin 6. Atrial fibrillation 7. Type 2 diabetes 8. DVT prophylaxis Discharge Diagnoses with Status of Each Condition: 1. Urinary tract infection: Improving 2. Diabetes: Stable 3. Atrial fibrillation: Stable 4. Hyponatremia: Improved 5. Hypothyroidism: Stable 6. Urinary retention: Stable - HPI History of Present Illness: Patient is an 82-year-old gentleman with a complex medical background who presented to the [facility] emergency department complaining of 1 day history of fever, chills and generalized weakness. The patient also reported that he was nauseous and vomited one time. He vomited clear gastric content, there was no blood. Due to the progressive weakness he was unable to get out of bed or ambulate. Usually has impaired mobility and uses a scooter; however, during the past day or so, he had difficulty even doing that. Notably the patient has extensive cardiac history however he reported that most recently his cardiac condition has been stable. He takes Coumadin for atrial fibrillation. He reported no chest pain, no shortness of breath, and no recent anginal-like symptoms. 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 This patient's background is most significant for history of prostate hypertrophy, for which he self catheterizes. In the past, he had urinary tract infections, in particular Klebsiella and E. coli UTIs, which were resistant to multiple antibiotics, including penicillin and fluoroquinolone. Patient reports that the last time he took antibiotics for urinary tract infection was about a year ago; at that time, he was admitted to the [facility]. Upon presentation to the emergency department the patient was found to be febrile with a temperature of 38.1, his heart rate was in the 70s and EKG showed a paced rhythm. The patient's blood pressure was borderline low at 100/ 60. Patient's white blood cell count was elevated to 15,000. Patient's INR was therapeutic at 2.7 and his creatinine was 1.3. Patient does have underlying chronic renal insufficiency. ER workup included influenza swab which was negative, chest x-ray which did not show infiltrate; and urinalysis which showed moderate occult blood, small leukocyte esterase, some red blood cells and moderate bacteria, indicating likelihood of urinary tract infection. The patient was admitted to the hospital with early sepsis due to urinary tract infection. - HOSPITAL COURSE Hospital Course: During the hospitalization the patient was treated with IV fluids and IV antibiotics. Given the patient's previous urine cultures the patient was placed on ceftriaxone he had significant improvement in his symptoms. The patient regained his strength and WBC count improved to normal. The patient had no further fevers during the hospitalization. The patient's blood pressure did remain on the low side. The patient's lisinopril was stopped during the hospitalization and he was given fluid. The patient also had several episodes of hypoglycemia for which the patient's glyburide was stopped and he was told to stop taking it at home. The patient felt back to his baseline at the time of discharge. The patient's urine culture was growing E. coli given that it has been susceptible to Bactrim in the past the patient was discharged home with Bactrim for 7 days to complete treatment for a complicated urinary tract infection. Patient was also told to drink plenty of water and was asked to follow-up with his primary care physician - ALLERGIES Allergies/Adverse Reactions: Allergies Allergy/AdvReac Type Severity Reaction Status Date / Time niacin Allergy Unknown Verified 05/27/17 18:27 - MEDICATIONS Home Medications: Ambulatory Orders Medication Instructions Recorded Confirmed Aspirin [Maura Chewable Aspirin] 81 mg PO DAILY 03/16/15 05/28/17 Atorvastatin Calcium [Lipitor] 40 mg PO QPM 03/16/15 05/28/17 Cholecalciferol (Vitamin D3) 2,000 unit PO DAILY 03/16/15 05/28/17 [Vitamin D3] Lisinopril 2.5 mg PO DAILY 03/16/15 05/28/17 Solifenacin Succinate [Vesicare] 10 mg PO DAILY 03/16/15 05/28/17 Ubidecarenone [Co Q-10] 100 mg PO DAILY 03/16/15 05/28/17 Warfarin [Coumadin] 5 mg PO SUTUWETHSA@1400 03/16/15 05/28/17 Warfarin [Coumadin] 7.5 mg PO MOFR@1400 05/27/17 05/28/17 Carvedilol [Coreg] 6.25 mg PO DAILY 05/28/17 05/28/17 Levothyroxine Sodium [Synthroid] 50 mcg PO QDAC 05/28/17 05/28/17 metFORMIN [Glucophage] 500 mg PO DAILYWM 05/28/17 05/28/17 Sulfamethox/Trimeth 800/160 1 tab PO BID #14 tablet 05/29/17 [Bactrim Ds 800/160] - PHYSICAL EXAM AT DISCHARGE General Appearance: positive: No acute distress, Alert Eyes Bilateral: positive: Normal inspection, PERRL, EOMI, No lid inflammation, Conjunctivae nml, No scleral icterus ENT: positive: ENT inspection nml, Pharynx nml, No signs of dehydration. negative: Purulent nasal drainage, Pharyngeal erythema, Oral lesions Neck: positive: Nml inspection, Thyroid nml, No JVD, Trachea midline. negative : Thyromegaly, Lymphadenopathy (R), Lymphadenopathy (L), Carotid bruit, Tracheal deviation Respiratory: positive: Chest non-tender, No respiratory distress, Breath sounds nml. negative: Wheezes, Rales, Rhonchi Cardiovascular: positive: Regular rate & rhythm, No murmur, No gallop Peripheral Pulses: positive: 2+ Abdomen: positive: Non-tender, No organomegaly, Nml bowel sounds, No distention. negative: Guarding, Rebound, Hepatomegaly Back: positive: Nml inspection. negative: CVA tenderness (R), CVA tenderness (L ) Skin: positive: Color nml, No rash, Warm. negative: Cyanosis, Pallor Extremities: positive: Non-tender, Full ROM, Nml appearance, No pedal edema Neurologic/Psychiatric: positive: Oriented x3, CN's nml (2-12), Motor nml, Sensation nml, Mood/affect nml - LABS Result Diagrams: 05/29/17 08:01 05/29/17 08:01 Other Lab Results: Laboratory Results WBC 9.0 x10^3/uL (4.8-10.8) 05/29/17 08:01 RBC 2.70 10^6/uL (4.70-6.10) L 05/29/17 08:01 Hgb 10.8 g/dL (14.0-18.0) L 05/29/17 08:01 Hct 31.2 % (42.0-52.0) L 05/29/17 08:01 MCV 115.8 fL (80.0-94.0) H 05/29/17 08:01 MCH 40.0 pg (27.0-31.0) H 05/29/17 08:01 MCHC 34.6 g/dL (32.0-36.0) 05/29/17 08:01 RDW 15.9 % (12.0-15.0) H 05/29/17 08:01 Plt Count 89 10^3/uL (130-450) L 05/29/17 08:01 MPV 8.4 fL (7.4-11.4) 05/29/17 08:01 Neut # 13.1 10^3/uL (1.5-6.6) H 05/28/17 06:10 Lymph # 0.9 10^3/uL (1.5-3.5) L 05/28/17 06:10 [place] # 1.1 10^3/uL (0.0-1.0) H 05/28/17 06:10 Eos # 0.0 10^3/uL (0.0-0.7) 05/28/17 06:10 Baso # 0.0 10^3/uL (0.0-0.1) 05/28/17 06:10 Absolute Nucleated RBC 0.00 x10^3/uL 05/28/17 06:10 Nucleated RBC % 0.0 /100WBC 05/28/17 06:10 Manual Slide Review Indicated 05/28/17 06:10 Platelet Estimate DECREASED (<130,000) (NORMAL) 05/27/17 19:11 Platelet Morphology NORMAL APPEARANCE (NORMAL) 05/27/17 19:11 RBC Morph Micro Appear 2+ ANISOCYTOSIS (NORMAL) 1+ HYPOCHROMASIA (NORMAL) 1 + MICROCYTOSIS (NORMAL) 05/27/17 19:11 RBC Morph Micro Appear 2+ ANISOCYTOSIS (NORMAL) 1+ HYPOCHROMASIA (NORMAL) 1 + MICROCYTOSIS (NORMAL) 05/27/17 19:11 RBC Morph Micro Appear 1+ ANISOCYTOSIS (NORMAL) 3+ MACROCYTOSIS (NORMAL) 06:10 RBC Morph Micro Appear 1+ ANISOCYTOSIS (NORMAL) 3+ MACROCYTOSIS (NORMAL) 06:10 PT 24.6 secs (9.9-12.6) H 05/28/17 06:10 INR 2.2 (0.8-1.2) H 05/28/17 06:10 Sodium 133 mmol/L (135-145) L 05/29/17 08:01 Potassium 4.2 mmol/L (3.5-5.0) 05/29/17 08:01 Chloride 100 mmol/L (101-111) L 05/29/17 08:01 Carbon Dioxide 24 mmol/L (21-32) 05/29/17 08:01 Anion Gap 9.0 (6-13) 05/29/17 08:01 BUN 20 mg/dL (6-20) 05/29/17 08:01 Creatinine 1.1 mg/dL (0.6-1.2) 05/29/17 08:01 Estimated GFR (MDRD) 64 (>89) L 05/29/17 08:01 Glucose 82 mg/dL (70-100) 05/29/17 08:01 POC Whole Bld Glucose 78 mg/dL (70 - 100) 05/29/17 07:32 Glycated Hemoglobin 7.1 % (4.6-6.2) H 05/27/17 19:11 Estim Average Glucose 157 (70-100) H 05/27/17 19:11 Lactic Acid 1.4 mmol/L (0.5-2.2) 05/27/17 19:11 Calcium 8.6 mg/dL (8.5-10.3) 05/29/17 08:01 Ionized Calcium NO 05/29/17 08:01 Total Bilirubin 1.5 mg/dL (0.2-1.0) H 05/29/17 08:01 AST 57 IU/L (10-42) H 05/29/17 08:01 ALT 42 IU/L (10-60) 05/29/17 08:01 Alkaline Phosphatase 66 IU/L (42-121) 05/29/17 08:01 Total Protein 6.9 g/dL (6.7-8.2) 05/29/17 08:01 Albumin 2.8 g/dL (3.2-5.5) L 05/29/17 08:01 Globulin 4.1 g/dL (2.1-4.2) 05/29/17 08:01 Albumin/Globulin Ratio 0.7 (1.0-2.2) L 05/29/17 08:01 Lipase 16 U/L (22-51) L 05/27/17 19:11 Urine Color YELLOW 05/27/17 19:45 Urine Clarity CLEAR (CLEAR) 05/27/17 19:45 Urine pH 5.5 PH (5.0-7.5) 05/27/17 19:45 Ur Specific [place] 1.025 (1.002-1.030) 05/27/17 19:45 Urine Protein NEGATIVE mg/dL (NEGATIVE) 05/27/17 19:45 Urine Glucose (UA) NEGATIVE mg/dL (NEGATIVE) 05/27/17 19:45 Urine Ketones NEGATIVE mg/dL (NEGATIVE) 05/27/17 19:45 Urine Occult Blood MODERATE (NEGATIVE) H 05/27/17 19:45 Urine Nitrite NEGATIVE (NEGATIVE) 05/27/17 19:45 Urine Bilirubin NEGATIVE (NEGATIVE) 05/27/17 19:45 Urine Urobilinogen 1 (NORMAL) E.U./dL (NORMAL) 05/27/17 19:45 Ur Leukocyte Esterase SMALL (NEGATIVE) H 05/27/17 19:45 Urine RBC 6-10 /HPF (0-5) H 05/27/17 19:45 Urine WBC 4-5 /HPF (0-3) 05/27/17 19:45 Ur Squamous Epith Cells RARE Squamous (<= Few) 05/27/17 19:45 Urine Bacteria Moderate /HPF (None Seen) H 05/27/17 19:45 Ur Microscopic Review INDICATED 05/27/17 19:45 Urine Culture Comments INDICATED 05/27/17 19:45 Influenza A (Rapid) Negative (Negative) 05/27/17 19:15 Influenza B (Rapid) Negative (Negative) 05/27/17 19:15 Influenza Types A,B Ag - 05/27/17 19:15 - DIAGNOSTIC IMAGING Diagnostic Imaging Results: Final report reviewed Diagnostic Imaging Results Comments: Chest x-ray Impression: 1. No acute pulmonary process 2. Mild cardiac enlargement. - FOLLOW UP Follow Up: Patient was discharged home on oral Bactrim which she will take for 7 days to complete treatment for urinary tract infection. Patient was also advised to stop taking glyburide and drink plenty of fluid. The patient will follow up with his primary care physician within the next week - TIME SPENT Time Spent in Discharge (Minutes): 35
[2017-05-29] MEDS: POLYETHYLENE GLYCOL 3350 17 GM PACKET PO SCH (09:10)
[2017-05-29] MEDS: NEOMYCIN/BACITRA/POLYMYX OINT PACKET TOP SCH (09:10)
[2017-05-29] MEDS: WARFARIN 5 MG TABLET PO SCH (12:44)
== END 2017-05-29 12:44 | disposition home or self-care (01) | DRG 872 ==
LOC: EDUNIT# → ED 18:16 → MS2 20:43
PROVIDERS: ADMIT Internal Medicine; ATTEND Internal Medicine
DX: A41.9 Sepsis, unspecified organism (principal); E87.1 Hypo-osmolality and hyponatremia; N28.9 Disorder of kidney and ureter, unspecified; T83.518A Infection and inflammatory reaction due to other urinary catheter, initial encounter; B96.20 Unspecified Escherichia coli [E. coli] as the cause of diseases classified elsewhere; I48.91 Unspecified atrial fibrillation; J43.9 Emphysema, unspecified; G47.30 Sleep apnea, unspecified; I48.2 Chronic atrial fibrillation; E03.9 Hypothyroidism, unspecified; N40.1 Benign prostatic hyperplasia with lower urinary tract symptoms; R33.8 Other retention of urine; I12.9 Hypertensive chronic kidney disease with stage 1 through stage 4 chronic kidney disease, or unspecified chronic kidney disease; E11.22 Type 2 diabetes mellitus with diabetic chronic kidney disease; N18.3 Chronic kidney disease, stage 3 (moderate); E11.649 Type 2 diabetes mellitus with hypoglycemia without coma; E11.42 Type 2 diabetes mellitus with diabetic polyneuropathy; E11.319 Type 2 diabetes mellitus with unspecified diabetic retinopathy without macular edema; E11.51 Type 2 diabetes mellitus with diabetic peripheral angiopathy without gangrene; E86.0 Dehydration; E78.5 Hyperlipidemia, unspecified; I25.10 Atherosclerotic heart disease of native coronary artery without angina pectoris; H54.7 Unspecified visual loss; Z66 Do not resuscitate; Z79.82 Long term (current) use of aspirin; Z79.84 Long term (current) use of oral hypoglycemic drugs; Z79.891 Long term (current) use of opiate analgesic; Z79.01 Long term (current) use of anticoagulants; Z79.899 Other long term (current) drug therapy; Z87.440 Personal history of urinary (tract) infections; Z95.1 Presence of aortocoronary bypass graft; Z95.0 Presence of cardiac pacemaker; Z87.891 Personal history of nicotine dependence; Z95.3 Presence of xenogenic heart valve
CPT/HCPCS: 36415; 51701; 71046; 80048; 80053; 81001; 81003; 83036; 83605; 83690; 85025; 85610; 87040; 87086; 87275; 87276; 87640; 93005; 96361; 96365; 99285

== ENCOUNTER 2017-05-30 13:44 | Outpatient (CLI) | payer MEDICARE, OTHER | END 2017-05-30 13:45 | disposition home or self-care (01) | LOC: LAB.F 13:44 | PROVIDERS: ATTEND Family Medicine | DX: Z79.01 Long term (current) use of anticoagulants (principal) | CPT/HCPCS: 85610 ==

== ENCOUNTER 2017-06-02 12:41 | Outpatient (CLI) | payer MEDICARE, OTHER | END 2017-06-02 12:42 | disposition home or self-care (01) | LOC: LAB.F 12:41 | PROVIDERS: ATTEND Family Medicine | DX: Z79.01 Long term (current) use of anticoagulants (principal) | CPT/HCPCS: 85610 ==

== ENCOUNTER 2017-06-10 08:00 | Outpatient (CLI) | payer MEDICARE, OTHER | END 2017-06-10 08:01 | LOC: LAB.F 08:00 | PROVIDERS: ATTEND Family Medicine | DX: Z79.01 Long term (current) use of anticoagulants (principal) | CPT/HCPCS: 85610 ==

== ENCOUNTER 2017-06-19 09:18 | Outpatient (CLI) | payer MEDICARE, OTHER ==
[2017-06-19 17:35] LABS: HB2 TOTAL 12.8 g/dL; HEMOGLOBIN A1C 0.64 g/dL; HEMOGLOBIN A1C % 6.7 % (4.6-6.2)
[2017-06-19 17:43] LABS: ALBUMIN 3.5 g/dL (3.2-5.5); ALBUMIN/GLOBULIN RATIO 0.8 (1.0-2.2); ALKALINE PHOSPHATASE 60 IU/L (42-121); ALT ALANINE AMINOTRANSFERASE 19 IU/L (10-60); AST ASPARTATE AMINOTRANSFERASE 33 IU/L (10-42); BILIRUBIN,TOTAL 1.8 mg/dL (0.2-1.0); BUN - BLOOD UREA NITROGEN 16 mg/dL (6-20); CALCIUM 8.7 mg/dL (8.5-10.3); CARBON DIOXIDE - CO2 27 mmol/L (21-32); CHLORIDE 102 mmol/L (101-111); CHOL/HDL RATIO 3.8 (<5.0); CHOLESTEROL 111 mg/dL; CREATININE 1.3 mg/dL (0.6-1.2); GFR - MDRD 53 (>89); GLUCOSE 103 mg/dL (70-100); HDL CHOLESTEROL 29 mg/dL; LDL CHOLESTEROL,CALCULATED 60 mg/dL; LDL/HDL RATIO 2.1 (<3.6); SODIUM 133 mmol/L (135-145); TOTAL PROTEIN 7.9 g/dL (6.7-8.2); VLDL CHOLESTEROL 22 mg/dL
== END 2017-06-19 09:19 | disposition home or self-care (01) ==
LOC: LAB.F 09:18
PROVIDERS: ATTEND Family Medicine
DX: I48.91 Unspecified atrial fibrillation (principal); Z79.01 Long term (current) use of anticoagulants; I10 Essential (primary) hypertension; E11.319 Type 2 diabetes mellitus with unspecified diabetic retinopathy without macular edema; E03.9 Hypothyroidism, unspecified; E78.5 Hyperlipidemia, unspecified
CPT/HCPCS: 36415; 80053; 80061; 83036; 83721; 84443; 85610

== ENCOUNTER 2017-06-26 15:18 | Outpatient (CLI) | payer MEDICARE, OTHER | END 2017-06-26 15:19 | disposition home or self-care (01) | LOC: LAB.F 15:18 | PROVIDERS: ATTEND Family Medicine | DX: Z79.01 Long term (current) use of anticoagulants (principal) | CPT/HCPCS: 85610 ==

== ENCOUNTER 2017-07-10 14:05 | Outpatient (CLI) | payer MEDICARE, OTHER | END 2017-07-10 14:06 | disposition home or self-care (01) | LOC: LAB.F 14:05 | PROVIDERS: ATTEND Family Medicine | DX: Z79.01 Long term (current) use of anticoagulants (principal) | CPT/HCPCS: 85610 ==

== ENCOUNTER 2017-07-18 13:45 | Outpatient (CLI) | payer MEDICARE, OTHER | END 2017-07-18 13:46 | disposition home or self-care (01) | LOC: LAB.F 13:45 | PROVIDERS: ATTEND Family Medicine | DX: Z79.01 Long term (current) use of anticoagulants (principal) | CPT/HCPCS: 85610 ==

== ENCOUNTER 2017-07-22 08:00 | Outpatient (CLI) | payer MEDICARE, OTHER | END 2017-07-22 08:01 | disposition home or self-care (01) | LOC: LAB.F 08:00 | PROVIDERS: ATTEND Family Medicine | DX: Z79.01 Long term (current) use of anticoagulants (principal) | CPT/HCPCS: 85610 ==

== ENCOUNTER 2017-07-31 10:12 | Outpatient (CLI) | payer MEDICARE, OTHER | END 2017-07-31 10:13 | disposition home or self-care (01) | LOC: LAB.F 10:12 | PROVIDERS: ATTEND Family Medicine | DX: Z79.01 Long term (current) use of anticoagulants (principal) | CPT/HCPCS: 85610 ==

== ENCOUNTER 2017-08-11 12:54 | Outpatient (CLI) | payer MEDICARE, OTHER | END 2017-08-11 12:55 | disposition home or self-care (01) | LOC: LAB.F 12:54 | PROVIDERS: ATTEND Family Medicine | DX: Z79.01 Long term (current) use of anticoagulants (principal) | CPT/HCPCS: 85610 ==

== ENCOUNTER 2017-08-11 16:39 | Outpatient (CLI) | payer MEDICARE, OTHER | END 2017-08-11 16:40 | disposition short-term general hospital (02) | LOC: EMS 16:39 | PROVIDERS: ATTEND Surgery | DX: R07.9 Chest pain, unspecified (principal) | CPT/HCPCS: A0425; A0427 ==

== ENCOUNTER 2017-09-10 14:40 | Outpatient (CLI) | payer MEDICARE, OTHER | END 2017-09-10 14:41 | disposition home or self-care (01) | LOC: LAB.F 14:40 | PROVIDERS: ATTEND Family Medicine | DX: Z79.01 Long term (current) use of anticoagulants (principal) | CPT/HCPCS: 85610 ==

== ENCOUNTER 2018-04-30 12:15 | Outpatient (CLI) | payer MEDICARE, OTHER | END 2018-04-30 12:16 | disposition home or self-care (01) | LOC: LAB.F 12:15 | PROVIDERS: ATTEND Internal Medicine | DX: I48.91 Unspecified atrial fibrillation (principal); Z79.01 Long term (current) use of anticoagulants | CPT/HCPCS: 85610 ==

== ENCOUNTER 2018-05-15 12:17 | Outpatient (CLI) | payer MEDICARE, OTHER | END 2018-05-15 12:18 | disposition home or self-care (01) | LOC: LAB.F 12:17 | PROVIDERS: ATTEND Internal Medicine | DX: I48.92 Unspecified atrial flutter (principal); Z79.01 Long term (current) use of anticoagulants | CPT/HCPCS: 85610 ==

== ENCOUNTER 2018-06-05 08:00 | Outpatient (CLI) | payer MEDICARE, OTHER | END 2018-06-05 23:59 | disposition home or self-care (01) | LOC: LAB.F 08:00 | PROVIDERS: ATTEND Internal Medicine | DX: I48.92 Unspecified atrial flutter (principal); Z79.01 Long term (current) use of anticoagulants | CPT/HCPCS: 85610 ==

== ENCOUNTER 2018-06-12 09:20 | Outpatient (CLI) | payer MEDICARE, OTHER | END 2018-06-12 09:21 | disposition home or self-care (01) | LOC: LAB.F 09:20 | PROVIDERS: ATTEND Internal Medicine | DX: I48.92 Unspecified atrial flutter (principal); Z79.01 Long term (current) use of anticoagulants | CPT/HCPCS: 85610 ==

== ENCOUNTER 2018-06-25 14:52 | Outpatient (CLI) | payer MEDICARE, OTHER | END 2018-06-25 14:53 | disposition home or self-care (01) | LOC: LAB.F 14:52 | PROVIDERS: ATTEND Internal Medicine | DX: I48.92 Unspecified atrial flutter (principal); Z79.01 Long term (current) use of anticoagulants | CPT/HCPCS: 85610 ==

== ENCOUNTER 2018-06-30 13:25 | Outpatient (CLI) | payer MEDICARE, OTHER ==
[2018-06-30 18:06] LABS: HB2 TOTAL 15.6 g/dL; HEMOGLOBIN A1C 0.73 g/dL; HEMOGLOBIN A1C % 6.4 % (4.6-6.2)
[2018-06-30 19:00] LABS: ALBUMIN 3.8 g/dL (3.2-5.5); ALBUMIN/GLOBULIN RATIO 0.7 (1.0-2.2); BILIRUBIN,TOTAL 1.2 mg/dL (0.2-1.0); CALCIUM 9.1 mg/dL (8.5-10.3); CREATININE 1.4 mg/dL (0.6-1.2); TOTAL PROTEIN 8.9 g/dL (6.7-8.2)
== END 2018-06-30 13:26 | disposition home or self-care (01) ==
LOC: LAB.F 13:25
PROVIDERS: ATTEND Internal Medicine
DX: E11.9 Type 2 diabetes mellitus without complications (principal); E03.9 Hypothyroidism, unspecified; I48.92 Unspecified atrial flutter; Z79.01 Long term (current) use of anticoagulants
CPT/HCPCS: 36415; 80053; 83036; 84443; 85610

== ENCOUNTER 2018-07-14 10:50 | Outpatient (CLI) | payer MEDICARE, OTHER | END 2018-07-14 10:51 | disposition home or self-care (01) | LOC: LAB.F 10:50 | PROVIDERS: ATTEND Internal Medicine | DX: I48.92 Unspecified atrial flutter (principal); Z79.01 Long term (current) use of anticoagulants | CPT/HCPCS: 85610 ==

== ENCOUNTER 2018-07-23 15:00 | Outpatient (CLI) | payer MEDICARE, OTHER | END 2018-07-23 15:01 | disposition home or self-care (01) | LOC: LAB.F 15:00 | PROVIDERS: ATTEND Internal Medicine | DX: I48.92 Unspecified atrial flutter (principal); Z79.01 Long term (current) use of anticoagulants | CPT/HCPCS: 85610 ==

== ENCOUNTER 2018-07-31 21:08 | Outpatient (CLI) | payer MEDICARE, OTHER | END 2018-07-31 21:09 | disposition critical access hospital (66) | LOC: EMS 21:08 | PROVIDERS: ATTEND Surgery | DX: R10.9 Unspecified abdominal pain (principal); R33.9 Retention of urine, unspecified; R15.9 Full incontinence of feces | CPT/HCPCS: A0425; A0427 ==

== ENCOUNTER 2018-07-31 22:16 | Emergency (ER) | payer MEDICARE, OTHER ==
[2018-07-31 23:38] LABS: BILIRUBIN,URINE NEGATIVE (NEGATIVE); GLUCOSE, URINE (UA) NEGATIVE (NEGATIVE); KETONES,URINE (UA) NEGATIVE (NEGATIVE); LEUKOCYTE ESTERASE, URINE MODERATE (NEGATIVE); NITRITE,URINE NEGATIVE (NEGATIVE); OCCULT BLOOD,URINE SMALL (NEGATIVE); PROTEIN,URINE TRACE mg/dL (NEGATIVE); UROBILINOGEN,URINE 1 (NORMAL) E.U./dL (NORMAL)
--- NOTE | 2018-07-31 23:39 | ED Physician Documentation ---
PD HPI MALE - Stated complaint Stated Complaint: MALE - Chief complaint Chief Complaint: Abd Pain - History obtained from History obtained from: Patient - History of Present Illness Timing - onset: Today Timing - duration: Hours Timing - details: Gradual onset Associated symptoms: Unable to urinate, Hernandez problem Recently seen: Not recently seen - Additional information Additional information: patient self-caths his bladder (says he is unable to urinate otherwise). 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) GI: reports: Abdominal Pain : reports: Unable to Void PD PAST MEDICAL HISTORY - Past Medical History Past Medical History: No Cardiovascular: Hypertension, Coronary artery disease, Peripheral Vascular Disease, Atrial fibrillation Respiratory: Emphysema, Sleep apnea, CPAP use Endocrine/Autoimmune: Type 2 diabetes, HyPOthyroidism : Retention, Chronic bladder infection HEENT: Chronic vision loss - Past Surgical History Past Surgical History: Yes General: Hiatal hernia repair Cardiovascular: CABG, Valve replacement, Pacemaker, Other - Present Medications Home Medications: Ambulatory Orders Medication Instructions Recorded Confirmed Aspirin [Maura Chewable Aspirin] 81 mg PO DAILY 03/16/15 05/28/17 Atorvastatin Calcium [Lipitor] 40 mg PO QPM 03/16/15 05/28/17 Cholecalciferol (Vitamin D3) 2,000 unit PO DAILY 03/16/15 05/28/17 [Vitamin D3] Lisinopril 2.5 mg PO DAILY 03/16/15 05/28/17 Solifenacin Succinate [Vesicare] 10 mg PO DAILY 03/16/15 05/28/17 Ubidecarenone [Co Q-10] 100 mg PO DAILY 03/16/15 05/28/17 Warfarin [Coumadin] 5 mg PO SUTUWETHSA@1400 03/16/15 05/28/17 Warfarin [Coumadin] 7.5 mg PO MOFR@1400 05/27/17 05/28/17 Carvedilol [Coreg] 125 mg PO BID 05/28/17 05/28/17 Levothyroxine Sodium [Synthroid] 50 mcg PO QDAC 05/28/17 05/28/17 Ciprofloxacin HCl [Cipro] 500 mg PO BID #14 tablet 07/31/18 HYDROcod/ACETAM 5/325 [[place] 5/325] 1 - 2 ea PO Q6H PRN 07/31/18 07/31/18 glyBURIDE [Glyburide] 5 mg PO 07/31/18 07/31/18 - Allergies Allergies/Adverse Reactions: Allergies Allergy/AdvReac Type Severity Reaction Status Date / Time niacin Allergy Unknown Verified 07/31/18 22:53 - Social History Does the pt smoke?: No Smoking Status: Never smoker Does the pt drink ETOH?: Yes Does the pt have substance abuse?: No - Immunizations Immunizations are current?: Yes - POLST Patient has POLST: Yes PD ED PE NORMAL - Vitals Vital signs reviewed: Yes - General General: Alert and oriented X 3, No acute distress, Well developed/nourished - Abdomen Abdomen: Soft, Non tender, Non distended - Back Back: No CVA TTP Results - Vitals Vitals: Vital Signs - 24 hr 07/31/18 07/31/18 07/31/18 22:15 22:48 23:44 Temperature 37.5 C 37.8 C H Heart Rate 70 70 69 Respiratory 22 16 Rate Blood Pressure 129/64 110/53 L 116/59 L O2 Saturation 100 96 95 08/01/18 00:56 Temperature Heart Rate 78 Respiratory 16 Rate Blood Pressure 110/56 L O2 Saturation 97 Oxygen O2 Source Room air - Labs Labs: Microbiology 07/31/18 23:20 Urine Culture - Preliminary Urine,Catheterized CULTURE IN PROGRESS. RESULTS TO FOLLOW. Laboratory Tests 07/31/18 23:20 Urine Color DARK YELLOW Urine Clarity HAZY Urine pH 6.0 Ur Specific [place] 1.025 Urine Protein TRACE Urine Glucose (UA) NEGATIVE Urine Ketones NEGATIVE Urine Occult Blood SMALL H Urine Nitrite NEGATIVE Urine Bilirubin NEGATIVE Urine Urobilinogen 1 (NORMAL) Ur Leukocyte Esterase MODERATE H Urine RBC 0-5 Urine WBC >25 H Ur Squamous Epith Cells RARE Squamous Urine Bacteria Many H Ur Microscopic Review INDICATED Urine Culture Comments INDICATED PD MEDICAL DECISION MAKING - ED course Complexity details: reviewed results, re-evaluated patient, considered diffe chap[place]ito, d/w patient ED course: hernandez catheter placed by RN, several hundred cc UO and complete resolution of symptoms. urine is cloudy and UA results c/w UTI. given rocephin and rx for cipro Departure - Departure Disposition: 01 Home, Self Care Clinical Impression: UTI (urinary tract infection) Condition: Good Instructions: ED UTI Cystitis Male Follow-Up: Doni Mchugh MD [Primary Care Provider] - Prescriptions: Ciprofloxacin HCl [Cipro] 500 mg PO BID #14 tablet Discharge Date/Time: 08/01/18 00:57
[2018-07-31 23:41] LABS: CLARITY,URINE HAZY (CLEAR)
[2018-07-31 23:48] LABS: RBC,URINE 0-5 /HPF (0-5)
[2018-07-31 23:49] LABS: BACTERIA,URINE Many /HPF (None Seen); SQUAMOUS EPITHELIAL CELL,UR RARE Squamous (<= Few)
[2018-07-31] MEDS ORDERED: cefTRIAXone 1 GM in SODIUM CHLORIDE 0.9% MINIBAG 100 ML IV STA (23:57)
[2018-08-01] MEDS ORDERED: ACETAMINOPHEN 325 MG TABLET PO STA (00:01)
[2018-08-01 00:57] VITALS: BP 110/56
== END 2018-08-01 00:57 | disposition home or self-care (01) ==
LOC: EDUNIT# → ED 22:16
DX: N39.0 Urinary tract infection, site not specified (principal); R33.9 Retention of urine, unspecified; I10 Essential (primary) hypertension; E11.51 Type 2 diabetes mellitus with diabetic peripheral angiopathy without gangrene; Z79.84 Long term (current) use of oral hypoglycemic drugs; I48.91 Unspecified atrial fibrillation; Z79.01 Long term (current) use of anticoagulants; Z79.82 Long term (current) use of aspirin
CPT/HCPCS: 51703; 81001; 87086; 87181; 96365; 99283; 99284; A9270; 81003

== ENCOUNTER 2018-08-17 08:36 | Outpatient (CLI) | payer MEDICARE, OTHER | END 2018-08-17 08:37 | disposition home or self-care (01) | LOC: LAB.F 08:36 | PROVIDERS: ATTEND Internal Medicine | DX: I48.92 Unspecified atrial flutter (principal); Z79.01 Long term (current) use of anticoagulants | CPT/HCPCS: 85610 ==

== ENCOUNTER 2018-08-31 08:58 | Outpatient (CLI) | payer MEDICARE, OTHER | END 2018-08-31 08:59 | disposition home or self-care (01) | LOC: LAB.F 08:58 | PROVIDERS: ATTEND Internal Medicine | DX: I48.92 Unspecified atrial flutter (principal); Z79.01 Long term (current) use of anticoagulants | CPT/HCPCS: 85610 ==

== ENCOUNTER 2018-09-14 11:23 | Outpatient (CLI) | payer MEDICARE, OTHER | END 2018-09-14 11:24 | disposition home or self-care (01) | LOC: LAB.F 11:23 | PROVIDERS: ATTEND Internal Medicine | DX: I48.92 Unspecified atrial flutter (principal); Z79.01 Long term (current) use of anticoagulants | CPT/HCPCS: 85610 ==